=== PATIENT | male | born 1950 | race Caucasian/White ===

== ENCOUNTER → 2017-07-08 | Outpatient (CLI) | payer MEDICARE, BC ==
--- NOTE | 2017-07-09 07:34 | RADIOLOGY REPORT (SQ) ---
EXAM DESCRIPTION: MRI CERVICAL SPINE WITHOUT COMPLETED DATE/TIME: 07/08/2017 6:59 pm REASON FOR STUDY: CERVICALGIA M54.2 CERVICALGIA COMPARISON: None. TECHNIQUE: Sagittal and Axial imaging includes T1, T2, STIR and gradient echo sequences. LIMITATIONS: Patient is very kyphotic. Coil signal dropout is seen over the lower cervical and uppe r thoracic region FINDINGS: ALIGNMENT: Normal. VERTEBRAE: Intact. BONE MARROW: Normal. No marrow replacement or reactive changes. DISCS: Diffuse decreased T2 weighted intervertebral disc signal. HARDWARE: None in the spine. CORD AND BASE OF BRAIN: There is cord flattening at the C4-5 disc level without increased signal in t he cord to suggest edema or myelomalacia. SOFT TISSUES: Not well-visualized C1-C2: No significant spinal stenosis. C2-C3: Mild bilateral foraminal narrowing from facet and uncovertebral hypertrophy C3-C4: Broad diffuse posterior disc bulge and bony spurring effaces the ventral thecal sac and abuts the ventral cord with minimal cord flattening. Mild central canal stenosis with effacement of CSF ar ound the cervical cord. Moderate to high-grade bilateral foraminal narrowing. These changes are bes t shown on axial T2 series 10, images 8-10. C4-C5: Moderate central canal stenosis results from broad diffuse posterior disc bulge and bony spurr ing. Mild ligamentum flavum thickening. There is effacement of the CSF around the cervical cord and mild cord flattening. High-grade bilateral foraminal stenosis from facet and uncovertebral hypertro phy. No abnormal intrinsic cord signal to suggest edema or myelomalacia. These changes are best nathaly wn on axial T2 series 10, image 12 and 13. C5-C6: Broad diffuse posterior disc bulge and bony spurring partially effaces the ventral thecal sac and abuts the cord without cord flattening or abnormal intrinsic cord signal. Borderline central can al narrowing. High-grade bilateral foraminal stenosis from facet and uncovertebral hypertrophy. The se changes are best shown on axial T2 series 10, image 15 and 16. C6-C7: Broad diffuse posterior disc bulge is present partly effacing the ventral thecal sac. Borderl ine central canal stenosis without cord flattening or abnormal intrinsic cord signal. High-grade rig ht, moderate to high-grade left foraminal narrowing from facet and uncovertebral hypertrophy. C7-T1: Signal dropout at the bottom edge of the coil. There is mild diffuse posterior disc bulging w ithout central stenosis. Mild bilateral foraminal narrowing from facet and uncovertebral hypertrophy UPPER THORACIC: Incompletely imaged. No significant spinal stenosis or exit foraminal stenosis. OTHER: No other significant finding. IMPRESSION: Multilevel significant central and foraminal stenosis TECHNICAL DOCUMENTATION: JOB ID: [id number] [employer]- All Rights Reserved
== END ==
LOC: RAD 16:57
PROVIDERS: ATTEND Family Medicine
DX: M54.2 Cervicalgia (principal); M48.02 Spinal stenosis, cervical region
CPT/HCPCS: 72141

== ENCOUNTER → 2017-07-20 | Outpatient (CLI) | payer MEDICARE, BC ==
--- NOTE | 2017-07-21 07:45 | XCELERA REPORT ---
[address] [address] Lower Extremity Venous Evaluation Name: AMANDA BROOKS Age: 67 yrs Gender: Male : 1950 Patient Status: Outpatient Patient Location: Study Date: 07/20/2017 12:59 PM Procedure: Color flow and duplex imaging bilaterally of the veins of the lower extremities as well as the Common Femoral veins. Reason For Study: VENOUS INSUFICIENCY Ordering Physician: INGRID VIDAL Performed By: Traci Ivy Right Sided Venous Evaluation Normal vessel filling wall to wall, compression and augmentation as well as Colour flow down to the infrageniculate veins. Left Sided Venous Evaluation Normal vessel filling wall to wall, compression and augmentation as well as Colour flow down to the infrageniculate veins. Interpretation Summary No duplex evidence of DVT or obstruction in the bilateral lower extremities. : INGRID VIDAL [place]
== END ==
LOC: SP 12:40
PROVIDERS: ATTEND Internal Medicine
DX: I87.2 Venous insufficiency (chronic) (peripheral) (principal)
CPT/HCPCS: 93970

== ENCOUNTER 2018-08-13 22:05 | Emergency (ER) | payer OTHER, MEDICARE, BC ==
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
[2018-08-14 01:20] VITALS: BP 146/95
== END 2018-08-14 01:20 | disposition home or self-care (01) ==
LOC: ER 22:05
DX: M54.2 Cervicalgia (principal); V49.40XA Driver injured in collision with unspecified motor vehicles in traffic accident, initial encounter; Z88.5 Allergy status to narcotic agent; Z98.890 Other specified postprocedural states
CPT/HCPCS: 99283; 72040; L0120